=== PATIENT | male | born 1990 | race Caucasian/White ===

== ENCOUNTER 2017-03-31 16:09 | Emergency (ER) | payer BC, SELFPAY | END 2017-03-31 17:35 | disposition home or self-care (01) | PROVIDERS: Emergency Provider Nurse Practitioner; Family Provider Family Medicine; Visit Provider Nurse Practitioner | DX: J10.1 Influenza due to other identified influenza virus with other respiratory manifestations (principal) | CPT/HCPCS: 87804; 99201 ==

== ENCOUNTER 2020-02-28 10:56 | Emergency (ER) | payer OTHER, SELFPAY ==
[2020-02-28 11:21] VITALS: BP 173/80; PULSE 94; RESP 16; TEMP 36.7; O2SAT 97; BMI 27.7
--- NOTE | 2020-02-28 11:27 | HMH.EDUTC ---
[facility] [place] Clinical Impression: Viral syndrome, Bronchitis, Fever blister Disposition: Home, Self-Care Condition on Discharge: Good Instructions: DI for Cold Sores, Preventing the Spread of Coronavirus Discharge Instructions Additional Instructions: Drink plenty of fluids. Take tylenol or ibuprofen for pain or fever. Take the medications as directed. Follow up with your regular doctor. GO TO THE ER FOR ANY WORSENING SYMPTOMS Prescriptions: Azithromycin [Z-Jaycob 250mg Tab*] 250 mg PO UD DOSE PK #6 tab Transmission Status: Received by [id number] Acyclovir [Zovirax 5% ointment 5gm] 1 applicatio TP 5XDAY 4 Days #1 tube Transmission Status: Received by [id number] Referrals: Gabriel Braun MD [Primary Care Provider] - Time of Disposition: 11:41 Medical Decision Making - Medical Records Medical records reviewed: No: I reviewed the patient's medical records. - Wily Inquiry Pt receiving controlled substance: No Vital Signs: 02/28/20 11:21 02/28/20 11:56 Temperature 98.0 F 98.5 F Temperature Source Oral Oral Pulse Rate 74 Pulse Rate [Right] 94 H Respiratory Rate 16 16 Blood Pressure 134/64 Blood Pressure [Right Arm] 173/80 H Blood Pressure Mean [Right Arm] 111 Blood Pressure Source Automatic Cuff Blood Pressure Source [Right Arm] Automatic Cuff Blood Pressure Position Sitting Blood Pressure Position [Right Arm] Sitting 02 Sat by Pulse Oximetry 97 Oxygen Delivery Method Room Air Room Air - Lab Data Lab Results 02/28/20 11:42: Influenza Type A Ag Negative, Influenza Type B Ag Negative [facility] [place] - General Stated complaint: Sore throat, congestion, body aches Time Seen by Provider: 02/28/20 11:27 Mode of Arrival: Ambulatory Source of Information: Patient Limitations: No Limitations Description of Symptoms (Recalled from Triage Doc. by RN): pt c/o feeling weak, body aches, sore throat, with blisters all over his bottom lip HEENT Symptoms (Recalled from RN notes): Yes (loss of taste and smell) Resp Symptoms (Recalled from RN notes): No Skin Symptoms (Recalled from RN notes): No MS Symptoms (Recalled from RN notes): No Functional Status (Recalled from RN notes): na - History of Present Illness Provider Complaint: He states that he has had a cough, chest congestion, and sinus congestion for the past 3 to 4 days. He has a break out of blisters on his bottom lip that began 2 days ago. He was checked for covid last week and it was negative. - Related Data Previous Rx's Medication Instructions Recorded Acyclovir [Zovirax 5% ointment 5gm] 1 applicatio TP 5XDAY 4 Days #1 02/28/20 tube Azithromycin [Z-Jaycob 250mg Tab*] 250 mg PO UD DOSE PK #6 tab 02/28/20 Allergies Allergy/AdvReac Type Severity Reaction Status Date / Time NO KNOWN ALLERGIES Allergy Unknown Uncoded 03/31/17 17:12 - Worker's Comp Is this a Worker's Comp case?: No [facility] History - Hepatitis A Screen Drug use history?: No High risk sexual behaviors?: No History of sexually transmitted infection?: No Currently employed?: No Childcare worker?: No Do you have indoor plumbing?: Yes Do you have electricity?: Yes Attestation statement:: This patient has been screened for Hepatitis A risk factors. I have reviewed the patient's past medical history: Yes ROS Obtained: Yes All systems reviewed & no additional complaints - Constitutional Constitutional: Reports system reviewed and no additional complaints, except as docu - Eyes Eyes: Reports system reviewed and no additional complaints, except as docu - ENT Ears, Nose, Mouth, and Throat: Reports system reviewed and no additional complaints, except as docu - Cardiovascular Cardiovascular: Reports system reviewed and no additional complaints, except as docu - Respiratory Respiratory: Yes system reviewed and no additional complaints, except as docu - Gastrointestinal Gastrointestingal: Reports: system reviewed and
[2020-02-28 11:43] LABS: UTC Influenza A Antigen Negative (Negative); UTC Influenza B Antigen Negative (Negative)
[2020-02-28 11:56] VITALS: BP 134/64; PULSE 74; RESP 16; TEMP 36.9; O2SAT 99
--- NOTE | 2020-02-28 19:53 | PC.NURSE ---
patient notified of positive covid results
== END 2020-02-28 11:57 | disposition home or self-care (01) ==
PROVIDERS: Emergency Provider Nurse Practitioner Family; PCP Family Medicine
DX: U07.1 COVID-19 (principal); B00.1 Herpesviral vesicular dermatitis
CPT/HCPCS: 87804; 99201; U0003

== ENCOUNTER 2023-03-16 08:01 | Emergency (ER) | payer BC, SELFPAY ==
[2023-03-16 08:10] VITALS: BP 127/80; PULSE 63; RESP 20; TEMP 36.6; O2SAT 96; BMI 28.0
--- NOTE | 2023-03-16 08:14 | XR_ITS ---
FINAL REPORT CLINICAL HISTORY: lateral sided pain. twisted ankle on Thanksgiving COMPARISON: None FINDINGS: RIGHT ANKLE 3 views of the right ankle were obtained. There is no acute fracture or dislocation. The mortise is intact. Visualized joint spaces are normally aligned. Soft tissues are unremarkable. IMPRESSION: No acute bony abnormality. Reviewed, Interpreted and Dictated by Harshil Meyers MD Transcribed by Tanika Guillen Authenticated and [facility]
--- NOTE | 2023-03-16 08:26 | EXP.UTC ---
Discharge Plan Referrals Follow up/Referrals: Provider,Referral, [Primary Care Provider] - See instructions Humaira Velasquez DPM [Staff Physician] - See instructions Activity Restrictions/Add. Instructions Additional Instructions/Restrictions: *weight bearing as tolerated *RICE, Rest the extremity, Ice 15-20 minutes 3-4 times daily, Compress- wear the jorge wrap as discussed as much as possible to help reduce swelling and pain, Elevate the extremity when at rest *Jorge wrap is for support and help control swelling, use it except in the shower. Be sure that is not to tight but not to loose either *Elevate when resting? *Ibuprofen 600-800mg every 6-8 hours as needed for pain an inflammation. If need something more can take Tylenol in between doses of Ibuprofen to help Immediately follow up with your family doctor for new or worsening of symptoms, or no noticeable improvement over the next 3-5 days Clinical Impressions Clinical Impression: Ankle sprain Qualifiers: Encounter type: initial encounter Involved ligament of ankle: unspecified ligament Laterality: right Qualified Code(s): S93.401A - Sprain of unspecified ligament of right ankle, initial encounter Instructions Patient Instructions: Ankle Sprain, DI for Ankle Sprain Discharge ED Provider: Ruth Guadarrama [facility] General Stated complaint: AO 02/23/23 right ankle Mode of Arrival: Ambulatory Source of Information: Patient Limitations: No Limitations Time Seen by Provider: 03/16/23 08:27 Description of Symptoms (Recalled from Triage Doc. by RN): PATIENT STATES HE SPRAINED HIS RIGHT ANKLE ON HEENT Symptoms (Recalled from RN notes): No Resp Symptoms (Recalled from RN notes): No Skin Symptoms (Recalled from RN notes): No MS Symptoms (Recalled from RN notes): Yes Functional Status (Recalled from RN notes): WNL History of Present Illness Provider Complaint: Patient states that on he sprained his right ankle States that he has done this several times before but it has never hurt or stayed swollen this long and when he gets up in the morning it hurts when he puts weight on it but then gets better so today when he was still having pain he came in to get it checked Related Data Allergies Allergy/AdvReac Type Severity Reaction Status Date / Time No Known Allergies Allergy Verified 03/16/23 08:26 Worker's Comp Is this a Worker's Comp case?: No [facility] Disclaimer: The information contained in this section may have been updated after the patient was seen, as this information can be updated by other users. Medical History (Updated 03/16/23 @ 09:21 by Ruth Guadarrama APRN) No significant past medical history Social History Smoking Status: Unknown if ever smoked alcohol intake: never current occupational status: employed Travel in the last 8 weeks: None ROS Obtained: Yes All systems reviewed & no additional complaints except as documented and Yes Systems reviewed as appropriate & no additional complaints except as documented Constitutional Constitutional: Reports system reviewed and no additional complaints, except as documented and Reports as per HPI ENT Ears, Nose, Mouth, and Throat: Reports system reviewed and no additional complaints, except as documented and Reports as per HPI Cardiovascular Cardiovascular: Reports system reviewed and no additional complaints, except as documented and Reports as per HPI Respiratory Respiratory: Reports system reviewed and no additional complaints, except as documented and Reports as per HPI Gastrointestinal Gastrointestingal: Reports system reviewed and no additional complaints, except as documented and as per HPI Musculoskeletal Musculoskeletal: Reports system reviewed and no additional complaints, except as documented, Reports as per HPI and Reports other (Pain in right ankle after spraining it on ) Physical Exam General General appearance: alert and in no appare
[2023-03-16 09:16] VITALS: BP 127/80; PULSE 63; RESP 20; TEMP 36.6; O2SAT 96
== END 2023-03-16 09:28 | disposition home or self-care (01) ==
LOC: ER 08:06 → UTC 08:09
PROVIDERS: Emergency Provider Nurse Practitioner
DX: M25.571 Pain in right ankle and joints of right foot (principal); S93.401A Sprain of unspecified ligament of right ankle, initial encounter; X50.1XXA Overexertion from prolonged static or awkward postures, initial encounter
CPT/HCPCS: 73610; 99204; 99212; G0463